=== PATIENT | male | born 2000 | race Two or more races ===

== ENCOUNTER 2022-01-16 00:49 | Emergency (ER) | payer OTHER ==
[~2022-01-16] VITALS: Ht 177.8 cm; Wt 93.2 kg
[2022-01-16] MEDS ORDERED: SERT-158 PO (01:13)
[2022-01-16 04:08] VITALS: BP 127/75
== END 2022-01-16 04:15 | disposition home or self-care (01) ==
LOC: EMS 00:52
DX: M25.552 Pain in left hip (principal); F12.90 Cannabis use, unspecified, uncomplicated; V43.92XA Unspecified car occupant injured in collision with other type car in traffic accident, initial encounter; Y93.89 Activity, other specified; Y92.89 Other specified places as the place of occurrence of the external cause; Y99.8 Other external cause status
CPT/HCPCS: 72170; 73503; 99284